=== PATIENT | male | born 1955 | race Caucasian/White ===

== ENCOUNTER 2020-09-05 07:25 | Inpatient (IN) ==
[2020-09-05] MEDS ORDERED: Ondansetron 4 MG/2 ML VIAL IVP ONE (08:18)
[2020-09-05] MEDS ORDERED: *HR* HYDROmorphone (PF) 1 MG/ML SYRINGE IVP ONE (08:18)
[2020-09-05 09:12] LABS: Basophils # 0.1 K/mcL (0.0-0.2); Basophils % 0.6 %; Eosinophils # 0.1 K/mcL (0.0-0.6); Eosinophils % 1.3 %; Hematocrit 35.1 % (37.5-50.1); Hemoglobin 11.3 g/dL (12.9-16.9); Immature Granulocytes % 1.2 % (0-4); Lymphocytes # 1.3 K/mcL (0.6-4.6); Lymphocytes % 15.4 %; Mean Corpuscular HGB Conc 32.2 g/dL (31.6-35.5); Mean Corpuscular Hemoglobin 30.3 pg (28.0-33.3); Mean Corpuscular Volume 94.1 fL (83.0-100.0); Mean Platelet Volume 9.5 fL (9.4-12.4); Monocytes # 0.8 K/mcL (0.0-1.3); Monocytes % 9.3 %; Platelet Count 266 K/mcL (140-400); Red Blood Count 3.73 M/mcL (4.19-5.50); Red Cell Distribution Width 15.5 % (11.5-14.5); Segmented Neutrophils % 72.2 %; White Blood Count 8.3 K/mcL (4.3-11.1)
[2020-09-05 09:26] LABS: Bilirubin,Urine Negative (Negative); Blood,Urine Large (Negative); Clarity,Urine Clear (Clear); Color,Urine Yellow (Yellow); Glucose,Urine (UA) Normal (Normal); Ketones,Urine Negative (Negative); Leukocyte Esterase,Urine Negative (Negative); Nitrite,Urine Negative (Negative); Protein,Urine 100 mg/dL (Neg-Trace); RBC,Urine 50-100 per hpf (0-3); Specific Gravity,Urine 1.025 (1.010-1.025)
[2020-09-05 09:44] LABS: Alanine Aminotransferase 89 Units/L (7-52); Albumin 2.9 g/dL (3.5-5.7); Albumin/Globulin Ratio 0.6 (1.1-2.2); Alkaline Phosphatase > 1500 Units/L (34-104); Aspartate Amino Transferase 129 Units/L (13-39); BUN/Creatinine Ratio 17 (6-26); Bilirubin,Total 1.8 mg/dL (0.3-1.0); Blood Urea Nitrogen 26 mg/dL (8-23); Calcium 8.8 mg/dL (8.6-10.3); Carbon Dioxide 24 mEq/L (23-29); Chloride 96 mEq/L (98-107); Globulin 4.7 g/dL (2.4-3.5); Glucose 87 mg/dL (70-105); Lipase 3 Units/L (11-82); Osmolality,Calculated 264 (280-300); Potassium 5.2 mEq/L (3.5-5.1); Sodium 125 mEq/L (136-145); Total Protein 7.6 g/dL (6.4-8.9); eGFR For African Americans 57 (> 60); eGFR For Non-African Americans 47 (> 60)
[2020-09-05] MEDS ORDERED: Ondansetron 4 MG/2 ML VIAL IVP PRN (11:43)
[2020-09-05] MEDS ORDERED: Acetaminophen 325 MG TABLET PO PRN (11:43)
[2020-09-05] MEDS ORDERED: Naloxone 0.4 MG/ML INJ IVP PRN (11:43)
[2020-09-05] MEDS ORDERED: *HR* HYDROmorphone (PF) 1 MG/ML SYRINGE IVP PRN (11:53)
[2020-09-05] MEDS ORDERED: Morphine Sulfate ER (12 HR) 15 MG TABLET.ER PO SCH (14:00)
[2020-09-05] MEDS: *HR* OxyCODONE/APAP 10/325 TABLET PO PRN ×3 (14:06→23:32)
[2020-09-05] MEDS: Morphine Sulfate ER (12 HR) 15 MG TABLET.ER PO SCH ×2 (16:47→22:59)
[2020-09-05 18:04] LABS: Potassium,Urine 28.2 mEq/L; Protein/Creatinine Ratio,Urine 3.54 mg/mg (0.00-0.20); Sodium, Urine 48.9 mEq/L
[2020-09-05] MEDS: *HR* Heparin 5,000 UNIT/ML VIAL SQ SCH (22:59)
[2020-09-06] MEDS: *HR* OxyCODONE/APAP 10/325 TABLET PO PRN ×2 (03:31→09:27)
[2020-09-06] MEDS: Morphine Sulfate ER (12 HR) 15 MG TABLET.ER PO SCH ×3 (04:58→18:05)
[2020-09-06] MEDS: *HR* Heparin 5,000 UNIT/ML VIAL SQ SCH ×3 (04:58→20:43)
[2020-09-06] MEDS ORDERED: *HR* Propofol 200 MG/20 ML VIAL IVP ONE (07:06)
[2020-09-06] MEDS ORDERED: Lidocaine -MPF 2% 2 ML VIAL ONE (07:06)
[2020-09-06] MEDS ORDERED: *HR* Midazolam HCl 2 MG/2 ML VIAL ONE (07:06)
[2020-09-06] MEDS ORDERED: *HR* HYDROmorphone PF 0.5 MG/0.5 ML SYRINGE IVP PRN (07:10)
[2020-09-06] MEDS ORDERED: Promethazine 6.25 MG in Water for inj. (sterile) 20 ML IVPB PRN (07:10)
[2020-09-06] MEDS ORDERED: *HR* OxyCODONE Immed Rel 5 MG TABLET PO PRN (07:10)
[2020-09-06] MEDS ORDERED: Ondansetron 4 MG/2 ML VIAL IVP PRN ×2 (07:10→10:57)
[2020-09-06] MEDS ORDERED: Isovue-300 50ML VIAL ONE (07:16)
[2020-09-06] MEDS ORDERED: levoFLOXacin 500 MG/100 ML 500 MG/100 ML BAG IVPB ONE (07:44)
[2020-09-06] MEDS ORDERED: Ondansetron 4 MG/2 ML VIAL ONE (07:55)
[2020-09-06 08:09] LABS: Basophils % 0.5 %; Eosinophils # 0.2 K/mcL (0.0-0.6); Eosinophils % 2.3 %; Hematocrit 32.3 % (37.5-50.1); Hemoglobin 10.2 g/dL (12.9-16.9); Immature Granulocytes % 1.1 % (0-4); Lymphocytes # 1.3 K/mcL (0.6-4.6); Lymphocytes % 20.4 %; Mean Corpuscular HGB Conc 31.6 g/dL (31.6-35.5); Mean Corpuscular Hemoglobin 29.7 pg (28.0-33.3); Mean Corpuscular Volume 93.9 fL (83.0-100.0); Mean Platelet Volume 9.9 fL (9.4-12.4); Monocytes # 0.6 K/mcL (0.0-1.3); Monocytes % 8.4 %; Neutrophils # 4.4 K/mcL (1.6-8.9); Platelet Count 217 K/mcL (140-400); Red Blood Count 3.44 M/mcL (4.19-5.50); Red Cell Distribution Width 15.7 % (11.5-14.5); Segmented Neutrophils % 67.3 %; White Blood Count 6.6 K/mcL (4.3-11.1)
[2020-09-06 08:17] LABS: Prothrombin Time 11.7 Seconds (9.4-12.1)
[2020-09-06 08:31] LABS: Alanine Aminotransferase 83 Units/L (7-52); Albumin 2.6 g/dL (3.5-5.7); Albumin/Globulin Ratio 0.6 (1.1-2.2); Alkaline Phosphatase > 1500 Units/L (34-104); Aspartate Amino Transferase 131 Units/L (13-39); BUN/Creatinine Ratio 17 (6-26); Bilirubin,Direct 1.3 mg/dL (0.0-0.2); Bilirubin,Indirect 0.4 mg/dL (0.0-1.0); Bilirubin,Total 1.7 mg/dL (0.3-1.0); Blood Urea Nitrogen 25 mg/dL (8-23); Calcium 8.5 mg/dL (8.6-10.3); Carbon Dioxide 25 mEq/L (23-29); Chloride 98 mEq/L (98-107); Globulin 4.3 g/dL (2.4-3.5); Glucose 83 mg/dL (70-105); Magnesium 1.8 mg/dL (1.6-2.6); Osmolality,Calculated 272 (280-300); Potassium 4.6 mEq/L (3.5-5.1); Sodium 129 mEq/L (136-145); Total Protein 6.9 g/dL (6.4-8.9); eGFR For African Americans 58 (> 60); eGFR For Non-African Americans 48 (> 60)
[2020-09-06] MEDS ORDERED: polyethylene glycoL 3350 17 GM POWD.PACK PO SCH (09:00)
[2020-09-06] MEDS ORDERED: *HR* OxyCODONE/APAP 5/325 TABLET PO PRN (10:28)
[2020-09-06] MEDS ORDERED: *HR* OxyCODONE Immed Rel 15 MG TABLET PO PRN ×2 (10:54→11:00)
[2020-09-06] MEDS ORDERED: Naloxone 0.4 MG/ML INJ IVP PRN (10:57)
[2020-09-06] MEDS ORDERED: Acetaminophen 325 MG TABLET PO PRN (10:57)
[2020-09-06] MEDS ORDERED: Morphine Sulfate ER (12 HR) 15 MG TABLET.ER PO ONE (11:05)
[2020-09-06] MEDS: *HR* OxyCODONE Immed Rel 15 MG TABLET PO PRN ×2 (13:14→20:42)
[2020-09-06] MEDS ORDERED: Perflutren Lipid Microsphere 1.3 ML in 0.9 % Sodium Chloride 8.7 ML IVP PRN (14:50)
[2020-09-06] MEDS ORDERED: *HR* HYDROmorphone (PF) 1 MG/ML SYRINGE IVP ONE (22:47)
[2020-09-07 01:52] LABS: Hematocrit 32.5 % (37.5-50.1); Hemoglobin 10.5 g/dL (12.9-16.9); Mean Corpuscular HGB Conc 32.3 g/dL (31.6-35.5); Mean Corpuscular Hemoglobin 30.3 pg (28.0-33.3); Mean Corpuscular Volume 93.7 fL (83.0-100.0); Mean Platelet Volume 10.2 fL (9.4-12.4); Platelet Count 246 K/mcL (140-400); Red Blood Count 3.47 M/mcL (4.19-5.50); Red Cell Distribution Width 16.1 % (11.5-14.5); White Blood Count 9.4 K/mcL (4.3-11.1)
[2020-09-07 02:10] LABS: Alanine Aminotransferase 71 Units/L (7-52); Albumin 2.7 g/dL (3.5-5.7); Albumin/Globulin Ratio 0.6 (1.1-2.2); Alkaline Phosphatase > 1500 Units/L (34-104); Aspartate Amino Transferase 88 Units/L (13-39); BUN/Creatinine Ratio 18 (6-26); Bilirubin,Total 1.3 mg/dL (0.3-1.0); Blood Urea Nitrogen 30 mg/dL (8-23); Calcium 8.6 mg/dL (8.6-10.3); Carbon Dioxide 24 mEq/L (23-29); Chloride 97 mEq/L (98-107); Globulin 4.3 g/dL (2.4-3.5); Glucose 155 mg/dL (70-105); Osmolality,Calculated 277 (280-300); Potassium 4.6 mEq/L (3.5-5.1); Sodium 129 mEq/L (136-145); eGFR For African Americans 51 (> 60); eGFR For Non-African Americans 42 (> 60)
[2020-09-07] MEDS: Morphine Sulfate ER (12 HR) 15 MG TABLET.ER PO SCH ×2 (02:33→10:33)
[2020-09-07] MEDS: *HR* OxyCODONE Immed Rel 15 MG TABLET PO PRN (05:12)
[2020-09-07] MEDS: *HR* Heparin 5,000 UNIT/ML VIAL SQ SCH ×3 (07:00→21:53)
[2020-09-07] MEDS ORDERED: *HR* HYDROmorphone (PF) 1 MG/ML SYRINGE IVP ONE ×2 (07:54→14:33)
[2020-09-07] MEDS: polyethylene glycoL 3350 17 GM POWD.PACK PO SCH (08:36)
[2020-09-07] MEDS ORDERED: *HR* HYDROmorphone (PF) 1 MG/ML SYRINGE IVP PRN (09:50)
[2020-09-07] MEDS ORDERED: *HR* LORazepam 2 MG/ML VIAL IVP ONE (10:14)
[2020-09-07] MEDS ORDERED: 0.9 % Sodium Chloride 500 ML ONE (12:49)
[2020-09-07] MEDS: *HR* HYDROmorphone 20 MG/20 ML PCA IVC PRN ×2 (12:52→23:40)
[2020-09-07] MEDS: amLODIPine 5 MG TABLET PO SCH (14:35)
[2020-09-07] MEDS ORDERED: polyethylene glycoL 3350 17 GM POWD.PACK PO ONE (20:54)
[2020-09-08 01:51] LABS: Hemoglobin 11.3 g/dL (12.9-16.9); Mean Corpuscular HGB Conc 31.4 g/dL (31.6-35.5); Mean Corpuscular Hemoglobin 30.1 pg (28.0-33.3); Mean Corpuscular Volume 95.7 fL (83.0-100.0); Mean Platelet Volume 9.9 fL (9.4-12.4); Platelet Count 224 K/mcL (140-400); Red Blood Count 3.76 M/mcL (4.19-5.50); Red Cell Distribution Width 16.8 % (11.5-14.5)
[2020-09-08 02:19] LABS: Alanine Aminotransferase 86 Units/L (7-52); Albumin/Globulin Ratio 0.7 (1.1-2.2); Alkaline Phosphatase > 1500 Units/L (34-104); Aspartate Amino Transferase 122 Units/L (13-39); BUN/Creatinine Ratio 20 (6-26); Bilirubin,Total 2.8 mg/dL (0.3-1.0); Blood Urea Nitrogen 30 mg/dL (8-23); Calcium 8.7 mg/dL (8.6-10.3); Carbon Dioxide 22 mEq/L (23-29); Chloride 100 mEq/L (98-107); Globulin 4.5 g/dL (2.4-3.5); Glucose 107 mg/dL (70-105); Osmolality,Calculated 279 (280-300); Potassium 5.4 mEq/L (3.5-5.1); Sodium 131 mEq/L (136-145); Total Protein 7.5 g/dL (6.4-8.9); eGFR For African Americans 57 (> 60); eGFR For Non-African Americans 47 (> 60)
[2020-09-08] MEDS ORDERED: Insulin Human Regular 10 UNIT in 0.9 % Sodium Chloride 10 ML IV ONE (02:45)
[2020-09-08] MEDS ORDERED: *HR* Dextrose 50 % in Water (Vial) 50 ML VIAL IVP ONE (02:45)
[2020-09-08 06:24] LABS: BUN/Creatinine Ratio 22 (6-26); Blood Urea Nitrogen 30 mg/dL (8-23); Calcium 8.9 mg/dL (8.6-10.3); Carbon Dioxide 22 mEq/L (23-29); Chloride 102 mEq/L (98-107); Glucose 93 mg/dL (70-105); Osmolality,Calculated 280 (280-300); Potassium 4.8 mEq/L (3.5-5.1); Sodium 132 mEq/L (136-145); eGFR For African Americans > 60 (> 60); eGFR For Non-African Americans 53 (> 60)
[2020-09-08] MEDS: *HR* Heparin 5,000 UNIT/ML VIAL SQ SCH ×3 (06:24→20:11)
[2020-09-08] MEDS: amLODIPine 5 MG TABLET PO SCH (08:55)
[2020-09-08] MEDS: polyethylene glycoL 3350 17 GM POWD.PACK PO SCH (08:55)
[2020-09-08] MEDS: *HR* HYDROmorphone 20 MG/20 ML PCA IVC PRN ×2 (10:07→20:05)
[2020-09-08] MEDS: Sennosides/Docusate Sodium TABLET PO SCH ×2 (14:22→20:11)
[2020-09-08] MEDS ORDERED: 0.9 % Sodium Chloride 500 ML ONE (23:19)
[2020-09-09 04:43] LABS: Hemoglobin 10.8 g/dL (12.9-16.9); Mean Corpuscular HGB Conc 31.8 g/dL (31.6-35.5); Mean Corpuscular Hemoglobin 29.8 pg (28.0-33.3); Mean Corpuscular Volume 93.9 fL (83.0-100.0); Mean Platelet Volume 10.1 fL (9.4-12.4); Platelet Count 243 K/mcL (140-400); Red Blood Count 3.62 M/mcL (4.19-5.50); Red Cell Distribution Width 17.1 % (11.5-14.5); White Blood Count 8.3 K/mcL (4.3-11.1)
[2020-09-09 05:01] LABS: Albumin 2.7 g/dL (3.5-5.7); Albumin/Globulin Ratio 0.6 (1.1-2.2); Bilirubin,Total 4.3 mg/dL (0.3-1.0); Calcium 8.8 mg/dL (8.6-10.3); Globulin 4.4 g/dL (2.4-3.5); Potassium 4.2 mEq/L (3.5-5.1); Total Protein 7.1 g/dL (6.4-8.9)
[2020-09-09] MEDS: *HR* Heparin 5,000 UNIT/ML VIAL SQ SCH ×3 (05:20→20:30)
[2020-09-09] MEDS: *HR* HYDROmorphone 20 MG/20 ML PCA IVC PRN ×3 (08:23→18:50)
[2020-09-09] MEDS: amLODIPine 5 MG TABLET PO SCH (08:43)
[2020-09-09] MEDS: Sennosides/Docusate Sodium TABLET PO SCH ×2 (08:44→20:31)
[2020-09-09] MEDS: polyethylene glycoL 3350 17 GM POWD.PACK PO SCH (08:44)
[2020-09-09] MEDS: *HR* LORazepam 0.5 MG TABLET PO PRN ×3 (09:57→20:31)
[2020-09-09] MEDS ORDERED: Lactulose Oral Soln 20 GM/30 ML UDC PO ONE (16:05)
[2020-09-10 02:21] LABS: Hematocrit 33.4 % (37.5-50.1); Hemoglobin 11.2 g/dL (12.9-16.9); Mean Corpuscular HGB Conc 33.5 g/dL (31.6-35.5); Mean Corpuscular Hemoglobin 30.4 pg (28.0-33.3); Mean Corpuscular Volume 90.8 fL (83.0-100.0); Mean Platelet Volume 9.7 fL (9.4-12.4); Platelet Count 250 K/mcL (140-400); Red Blood Count 3.68 M/mcL (4.19-5.50); Red Cell Distribution Width 17.3 % (11.5-14.5); White Blood Count 11.8 K/mcL (4.3-11.1)
[2020-09-10 02:42] LABS: Alanine Aminotransferase 80 Units/L (7-52); Albumin 2.8 g/dL (3.5-5.7); Albumin/Globulin Ratio 0.6 (1.1-2.2); Alkaline Phosphatase 1412 Units/L (34-104); Aspartate Amino Transferase 109 Units/L (13-39); BUN/Creatinine Ratio 24 (6-26); Bilirubin,Total 5.6 mg/dL (0.3-1.0); Blood Urea Nitrogen 31 mg/dL (8-23); Calcium 8.8 mg/dL (8.6-10.3); Carbon Dioxide 19 mEq/L (23-29); Chloride 99 mEq/L (98-107); Globulin 4.5 g/dL (2.4-3.5); Glucose 108 mg/dL (70-105); Osmolality,Calculated 273 (280-300); Potassium 4.3 mEq/L (3.5-5.1); Sodium 128 mEq/L (136-145); Total Protein 7.3 g/dL (6.4-8.9); eGFR For African Americans > 60 (> 60); eGFR For Non-African Americans 55 (> 60)
[2020-09-10] MEDS: *HR* LORazepam 0.5 MG TABLET PO PRN (03:47)
[2020-09-10] MEDS: *HR* Heparin 5,000 UNIT/ML VIAL SQ SCH ×3 (05:09→20:22)
[2020-09-10] MEDS: amLODIPine 5 MG TABLET PO SCH (09:10)
[2020-09-10] MEDS: Sennosides/Docusate Sodium TABLET PO SCH ×2 (09:11→20:22)
[2020-09-10] MEDS: polyethylene glycoL 3350 17 GM POWD.PACK PO SCH (09:11)
[2020-09-10] MEDS: Gabapentin 300 MG CAPSULE PO SCH ×2 (11:50→20:25)
[2020-09-10] MEDS ORDERED: 0.9 % Sodium Chloride 500 ML ONE (12:29)
[2020-09-10] MEDS: *HR* HYDROmorphone 20 MG/20 ML PCA IVC PRN ×2 (12:35→21:49)
[2020-09-10 17:41] LABS: Bilirubin,Urine Moderate (Negative); Blood,Urine Large (Negative); Clarity,Urine Turbid (Clear); Color,Urine Dark-Yellow (Yellow); Glucose,Urine (UA) 100 mg/dL (Normal); Ketones,Urine Negative (Negative); Leukocyte Esterase,Urine Moderate (Negative); Mucus,Urine Few per lpf (None-Few); Nitrite,Urine Negative (Negative); PH,Urine 6.5 pH Units (5.0-8.0); Protein,Urine 100 mg/dL (Neg-Trace); RBC,Urine TNTC per hpf (0-3); Specific Gravity,Urine 1.015 (1.010-1.025); Urobilinogen,Urine Normal (Normal); WBC,Urine 15-30 per hpf (0-3)
[2020-09-10] MEDS: levoFLOXacin 750 MG/150 ML 750 MG/150 ML BAG IVPB SCH (18:39)
[2020-09-11 02:01] LABS: Hematocrit 32.3 % (37.5-50.1); Mean Corpuscular HGB Conc 34.1 g/dL (31.6-35.5); Mean Corpuscular Hemoglobin 30.6 pg (28.0-33.3); Mean Platelet Volume 10.7 fL (9.4-12.4); Platelet Count 256 K/mcL (140-400); Red Blood Count 3.59 M/mcL (4.19-5.50); Red Cell Distribution Width 17.2 % (11.5-14.5); White Blood Count 10.5 K/mcL (4.3-11.1)
[2020-09-11 02:21] LABS: Alanine Aminotransferase 86 Units/L (7-52); Albumin 2.6 g/dL (3.5-5.7); Albumin/Globulin Ratio 0.6 (1.1-2.2); Alkaline Phosphatase 1397 Units/L (34-104); Aspartate Amino Transferase 123 Units/L (13-39); BUN/Creatinine Ratio 25 (6-26); Bilirubin,Total 7.7 mg/dL (0.3-1.0); Blood Urea Nitrogen 36 mg/dL (8-23); Calcium 8.6 mg/dL (8.6-10.3); Carbon Dioxide 21 mEq/L (23-29); Chloride 98 mEq/L (98-107); Globulin 4.4 g/dL (2.4-3.5); Glucose 98 mg/dL (70-105); Osmolality,Calculated 274 (280-300); Potassium 3.9 mEq/L (3.5-5.1); Sodium 128 mEq/L (136-145); eGFR For African Americans > 60 (> 60); eGFR For Non-African Americans 50 (> 60)
[2020-09-11] MEDS ORDERED: *HR* OxyCODONE Immed Rel 5 MG TABLET PO ONE (04:51)
[2020-09-11] MEDS: *HR* Heparin 5,000 UNIT/ML VIAL SQ SCH ×3 (04:55→20:15)
[2020-09-11] MEDS: levoFLOXacin 750 MG/150 ML 750 MG/150 ML BAG IVPB SCH (07:40)
[2020-09-11] MEDS: Sennosides/Docusate Sodium TABLET PO SCH ×2 (07:41→20:15)
[2020-09-11] MEDS: polyethylene glycoL 3350 17 GM POWD.PACK PO SCH (07:41)
[2020-09-11] MEDS: Gabapentin 300 MG CAPSULE PO SCH ×3 (07:42→20:15)
[2020-09-11] MEDS: amLODIPine 5 MG TABLET PO SCH (07:42)
[2020-09-11] MEDS: *HR* HYDROmorphone 20 MG/20 ML PCA IVC PRN (09:43)
[2020-09-11] MEDS ORDERED: *HR* HYDROmorphone (PF) 1 MG/ML SYRINGE IVP ONE ×2 (10:38→11:00)
[2020-09-11] MEDS ORDERED: *HR* HYDROmorphone 2 MG/ML SYRINGE IVP ONE (10:39)
[2020-09-11] MEDS ORDERED: *HR* FentaNYL PATCH 25 MCG PATCH TD SCH (11:45)
[2020-09-11] MEDS ORDERED: *HR* FentaNYL (PF) 100 MCG/2 ML VIAL IVP PRN (15:18)
[2020-09-11] MEDS ORDERED: *HR* FentaNYL PATCH 100 MCG PATCH TD SCH (16:00)
[2020-09-11] MEDS: *HR* FentaNYL (PF) 100 MCG/2 ML VIAL IVP PRN ×4 (16:16→22:24)
[2020-09-11] MEDS ORDERED: levoFLOXacin 750 MG TABLET PO SCH (18:00)
[2020-09-11] MEDS: *HR* LORazepam 0.5 MG TABLET PO PRN (22:24)
[2020-09-12] MEDS: *HR* FentaNYL (PF) 100 MCG/2 ML VIAL IVP PRN ×9 (00:50→23:47)
[2020-09-12 03:42] LABS: Hematocrit 30.1 % (37.5-50.1); Hemoglobin 10.2 g/dL (12.9-16.9); Mean Corpuscular HGB Conc 33.9 g/dL (31.6-35.5); Mean Corpuscular Hemoglobin 30.6 pg (28.0-33.3); Mean Corpuscular Volume 90.4 fL (83.0-100.0); Mean Platelet Volume 10.7 fL (9.4-12.4); Platelet Count 267 K/mcL (140-400); Red Blood Count 3.33 M/mcL (4.19-5.50); Red Cell Distribution Width 17.4 % (11.5-14.5); White Blood Count 10.3 K/mcL (4.3-11.1)
[2020-09-12 04:04] LABS: Albumin 2.5 g/dL (3.5-5.7); Albumin/Globulin Ratio 0.6 (1.1-2.2); Bilirubin,Total 4.4 mg/dL (0.3-1.0); Calcium 8.4 mg/dL (8.6-10.3); Globulin 4.2 g/dL (2.4-3.5); Potassium 3.8 mEq/L (3.5-5.1); Total Protein 6.7 g/dL (6.4-8.9)
[2020-09-12] MEDS: *HR* Heparin 5,000 UNIT/ML VIAL SQ SCH ×3 (05:42→22:22)
[2020-09-12] MEDS: Sennosides/Docusate Sodium TABLET PO SCH ×2 (08:17→22:21)
[2020-09-12] MEDS: amLODIPine 5 MG TABLET PO SCH (08:17)
[2020-09-12] MEDS: 0.9 % Sodium Chloride 1,000 ML IVC SCH ×2 (08:17→15:00)
[2020-09-12] MEDS: polyethylene glycoL 3350 17 GM POWD.PACK PO SCH (08:17)
[2020-09-12] MEDS: Gabapentin 300 MG CAPSULE PO SCH ×3 (08:17→22:22)
[2020-09-12] MEDS: *HR* LORazepam 0.5 MG TABLET PO PRN ×3 (08:17→22:21)
[2020-09-12] MEDS ORDERED: *HR* FentaNYL (PF) 100 MCG/2 ML VIAL IVP STA (09:26)
[2020-09-12] MEDS: *HR* OxyCODONE Immed Rel 5 MG TABLET PO PRN ×3 (13:31→22:22)
[2020-09-13] MEDS: *HR* FentaNYL (PF) 100 MCG/2 ML VIAL IVP PRN ×4 (02:48→09:57)
[2020-09-13] MEDS: *HR* LORazepam 0.5 MG TABLET PO PRN ×4 (02:49→16:13)
[2020-09-13] MEDS: *HR* OxyCODONE Immed Rel 5 MG TABLET PO PRN ×4 (02:49→16:13)
[2020-09-13] MEDS: *HR* Heparin 5,000 UNIT/ML VIAL SQ SCH ×2 (05:31→13:45)
[2020-09-13 06:57] VITALS: O2SAT 90
[2020-09-13] MEDS: Sennosides/Docusate Sodium TABLET PO SCH (07:45)
[2020-09-13] MEDS: Gabapentin 300 MG CAPSULE PO SCH ×2 (07:45→13:45)
[2020-09-13] MEDS: amLODIPine 5 MG TABLET PO SCH (07:45)
[2020-09-13] MEDS: polyethylene glycoL 3350 17 GM POWD.PACK PO SCH (07:46)
[2020-09-13] MEDS ORDERED: *HR* FentaNYL (PF) 100 MCG/2 ML VIAL IVP PRN (10:39)
[2020-09-13 10:59] VITALS: BP 130/74; PULSE 126; TEMP 99.2
[2020-09-13] MEDS ORDERED: *HR* FentaNYL PATCH 100 MCG PATCH TD SCH (11:45)
[2020-09-13] MEDS ORDERED: levoFLOXacin 750 MG TABLET PO SCH (16:00)
== END 2020-09-13 16:41 | disposition hospice, home (50) | DRG 659 ==
LOC: 2ANU 07:25 → EMEROOARM 07:25 → SUATTDRO 10:32 → 2ANU 12:08 → SUATTDRO 09-06 14:47
PROVIDERS: ADMIT Pharmacist; ATTEND Internal Medicine